=== PATIENT | female | born 1980 | race Caucasian/White ===

== ENCOUNTER 2019-03-18 19:06 | Inpatient (IN) | payer BC ==
[~2019-03-18 19:06] MED LIST: Lactated Ringers 1,000 ML IV SCH
[2019-03-18] MEDS ORDERED: cefOXitin 2 GM Vial IVPUSH ONE (19:34)
--- NOTE | 2019-03-18 21:25 | PCM.HPR ---
H & P Addendum review - H & P Addendum Review Date of Original H & P: 03/18/19 Date Reviewed: 03/18/19 Time Reviewed: 19:15 Patient was Examined: No Changes (Findings all consistent with appendicitis. Recommend proceeding with lap appy, possible open. Reviewed risks and complication, informed consent obtained.)
[2019-03-18] MEDS ORDERED: Morphine 2 MG/ML Syringe IVPUSH PRN (21:27)
--- NOTE | 2019-03-18 21:27 | PCM.OPNOTE ---
- General Post-Op/Procedure Note Date of Surgery/Procedure: 03/18/19 Operative Procedure(s): Lap Appy and partial Cecectomy Findings: Acute perforated appendicitis Pre Op Diagnosis: acute Appendicitis Post-Op Diagnosis: Same Anesthesia Technique: General ET Tube Primary Surgeon: Paul Mas EBL in mLs: 50 Surgical Drain/Tube Type: Alex Drain Complications: None Condition: Good Free Text/Narrative:: Intake & Output 03/18/19 03/18/19 03/18/19 06:59 14:59 22:59 Output Total 200 Balance -200
[2019-03-18] MEDS ORDERED: fentaNYL 100 MCG/2 ML SDV IV ONE (21:40)
[2019-03-18] MEDS ORDERED: Ketorolac 30 MG/ML SDV IVPUSH ONE (21:40)
[2019-03-18] MEDS ORDERED: Propofol 200 MG/20 ML SDV IV ONE (21:40)
[2019-03-18] MEDS ORDERED: Lactated Ringers 1,000 ML IV ONE (21:40)
[2019-03-18] MEDS ORDERED: Ondansetron 4 MG/2 ML SDV IVPUSH ONE (21:40)
[2019-03-18] MEDS ORDERED: HYDROmorphone 2 MG/ML SDV IV ONE (21:40)
[2019-03-18] MEDS ORDERED: Glycopyrrolate 0.2 MG/ML 5 ML MDV IV ONE (21:40)
[2019-03-18] MEDS ORDERED: cefOXitin 2 GM Vial IV ONE (21:40)
[2019-03-18] MEDS ORDERED: Midazolam 1 MG/ML 2 ML SDV IV ONE (21:40)
[2019-03-18] MEDS ORDERED: Neostigmine Methylsulfate 10 MG/10 ML MDV IVPUSH ONE (21:40)
[2019-03-18] MEDS ORDERED: Rocuronium 50 MG/5 ML Vial IV ONE (21:40)
[2019-03-18] MEDS ORDERED: Lidocaine 2% 100 MG/5 ML Syringe IVPUSH ONE (21:40)
[2019-03-18] MEDS ORDERED: Succinylcholine 200 MG/10 ML MDV IV ONE (21:40)
[2019-03-18] MEDS: Ketorolac 30 MG/ML SDV IVPUSH SCH (22:09)
[2019-03-18] MEDS: Piperacillin/Tazobactam 3.375 GM in Sodium Chloride 0.9% 50 ML IV SCH (22:10)
--- NOTE | 2019-03-18 22:49 | OR ---
DATE OF OPERATION: 03/18/2019 SURGEON: Paul Mas MD PREOPERATIVE DIAGNOSIS: Acute appendicitis. POSTOPERATIVE DIAGNOSIS: Acute appendicitis with perforation. PROCEDURE: Laparoscopic appendectomy with partial cecectomy. ANESTHESIA: General. DESCRIPTION OF PROCEDURE: The patient was brought to the operating room, where general endotracheal anesthesia was administered. Time-out was performed. Flowtrons had been applied. Abdomen was prepped with ChloraPrep and draped sterilely. An infraumbilical incision was made and extended into the peritoneal cavity without difficulty. The Kwasi cannulator was introduced and pneumoperitoneum obtained. The patient was placed in reverse Trendelenburg position and rotated to the left. The right lower quadrant and pelvis had inflammation and adherence of omentum, cecum, small bowel, and small bowel mesentery. These were bluntly . Terminal ileum was identified. Upon the terminal ileum near the cecum, stool chunks were present, measuring up to 1 cm in diameter. Three of these were removed and a few smaller ones suctioned. The perforation was at the base of the appendix. I was able to take down the mesoappendix with one application of the Endo-MICHAEL 2.5 mm stapler. Only 1 filmy band of peritoneum connected the appendix still, so this was transected. Appendix was placed in an Endopouch and brought out through the umbilical incision. The cecum was then thoroughly inspected. The opening was not able to be stapled across since there was no stump left, and the adjacent cecum was inflamed and thickened. After inspecting this thoroughly, I decided to mobilize the lateral and posterior portion of the cecum. There was enough room between the appendix stump and the terminal ileum to place the large Endo- MICHAEL 3.5 mm stapler. Two applications of this were taken across the base of the cecum. A small bit remained, and this was transected with a third application of the Endo-MICHAEL 3.5 mm stapler. This base of the cecum was then brought out through the umbilical incision and also sent for pathology review. In mobilizing the cecum, 2 small blood vessels were encounter that had minimal bleeding and Endo Clips were placed on. The staple lines were thoroughly inspected and were intact. Hemostasis was assured. 1 L of irrigation was used. Ports were removed under direct vision and remained hemostatic. Umbilical fascia was closed with [id number] 0-Vicryl. Skin was closed with 4-0 Vicryl subcuticular sutures. Benzoin and Steri-Strips were placed and Band-Aids applied. The patient tolerated the procedure well. ESTIMATED BLOOD LOSS: 50 mL. She returned to Postanesthesia in stable condition. /[id number] JANE/MERLE PATEL
[2019-03-19] MEDS: Ketorolac 30 MG/ML SDV IVPUSH SCH ×4 (03:15→21:32)
[2019-03-19] MEDS: Piperacillin/Tazobactam 3.375 GM in Sodium Chloride 0.9% 50 ML IV SCH ×4 (03:35→21:38)
[2019-03-19] MEDS: Lactated Ringers 1,000 ML IV SCH ×3 (06:13→23:30)
[2019-03-19] MEDS: Acetaminophen/HYDROcodone 325-5 MG Tab PO PRN ×3 (09:19→22:47)
[2019-03-19] MEDS: Sodium Chloride 0.9% 10 ML Syringe FLUSH PRN ×5 (09:35→22:46)
[2019-03-19] MEDS: Enoxaparin 40 MG/0.4 ML Syringe SUBCUT SCH (20:05)
--- NOTE | 2019-03-19 21:55 | PCM.SURGPN ---
- General Info Date of Service: 03/19/19 POD#: 1 Functional Status: Reports: Pain Controlled, Ambulating - Review of Systems General: Reports: No Symptoms. Denies: Fever Pulmonary: Reports: No Symptoms Cardiovascular: Reports: No Symptoms Gastrointestinal: Reports: Abdominal Pain (in R groin ) - Patient Data Vitals - Most Recent: Last Vital Signs Temp 98.3 F 03/19/19 16:25 Pulse 81 03/19/19 16:25 Resp 18 03/19/19 16:25 BP 91/52 L 03/19/19 16:25 Pulse Ox 92 L 03/19/19 16:25 Weight - Most Recent: 89.947 kg I&O - Last 24 Hours: Intake & Output 03/19/19 03/19/19 03/19/19 06:59 14:59 22:59 Intake Total 984 1037 249 Output Total 400 760 100 Balance 584 277 149 Med Orders - Current: Current Medications Hydrocodone Bitart/Acetaminophen ([place] 325-5 Mg) 1 tab PO Q4H PRN PRN Reason: Pain (mild 1-3) Last Admin: 03/19/19 18:10 Dose: 1 tab Enoxaparin Sodium (Lovenox) 40 mg SUBCUT Q24H [facility] Last Admin: 03/19/19 20:05 Dose: 40 mg Lactated Ringer's (Ringers, Lactated) 1,000 mls @ 100 mls/hr IV ASDIRECTED [facility] Lactated Ringer's (Ringers, Lactated) 1,000 mls @ 125 mls/hr IV ASDIRECTED [facility] Last Admin: 03/19/19 14:17 Dose: 125 mls/hr Piperacillin Sod/Tazobactam (Sod 3.375 gm/ Sodium Chloride) 50 mls @ 100 mls/ hr IV Q6H [facility] Stop: 03/23/19 21:31 Last Admin: 03/19/19 21:38 Dose: 100 mls/hr Ketorolac Tromethamine (Toradol) 30 mg IVPUSH Q6H [facility] Stop: 03/23/19 21:30 Last Admin: 03/19/19 21:32 Dose: 30 mg Morphine Sulfate (Morphine) 2 mg IVPUSH Q1H PRN PRN Reason: Pain (severe 7-10) Last Admin: 03/19/19 05:56 Dose: 2 mg Sodium Chloride (Saline Flush) 10 ml FLUSH ASDIRECTED PRN PRN Reason: Keep Vein Open Last Admin: 03/19/19 21:33 Dose: 10 ml Discontinued Medications Cefoxitin Sodium (Mefoxin) 2 gm IVPUSH ONETIME ONE Stop: 03/18/19 19:35 Last Admin: 03/18/19 22:03 Dose: Not Given Piperacillin Sod/Tazobactam Sod (Zosyn) Confirm Administered Dose 3.375 gm .ROUTE .STK-MED ONE Stop: 03/18/19 21:13 Last Admin: 03/18/19 22:13 Dose: Not Given - Exam Wound/Incisions: Healing Well General: Alert, Oriented Lungs: Clear to Auscultation GI/Abdominal Exam: Soft, Non-Tender - Problem List Review Problem List Initiated/Reviewed/Updated: Yes - My Orders Last 24 Hours: Active Orders 24 hr Category Date Time Status Patient Status [ADT] Routine ADT 03/18/19 21:27 Active Oxygen Therapy [RC] PRN Care 03/18/19 21:27 Active RT Incentive Spirometry [RC] Q2HWA Care 03/18/19 21:27 Active Up With Assistance [RC] ASDIRECTED Care 03/18/19 21:27 Active Vital Signs [RC] 08,12,16,20,00,04 Care 03/18/19 21:27 Active CBC W/O DIFF,HEMOGRAM [HEME] Routine Lab 03/20/19 07:00 Ordered Acetaminophen/HYDROcodone [[place] 325-5 MG] Med 03/18/19 21:27 Active 1 tab PO Q4H PRN Enoxaparin [Lovenox] Med 03/19/19 20:00 Active 40 mg SUBCUT Q24H Ketorolac [Toradol] Med 03/18/19 21:30 Active 30 mg IVPUSH Q6H Lactated Ringers [Ringers, Lactated] 1,000 ml Med 03/18/19 21:30 Active IV ASDIRECTED Morphine Med 03/18/19 21:27 Active 2 mg IVPUSH Q1H PRN Piperacillin/Tazobactam [Zosyn] 3.375 gm Med 03/18/19 21:30 Active Sodium Chloride 0.9% [Normal Saline] 50 ml IV Q6H Sodium Chloride 0.9% [Saline Flush] Med 03/19/19 09:25 Active 10 ml FLUSH ASDIRECTED PRN Resuscitation Status Routine Resus Stat 03/18/19 21:27 Ordered Medication Orders Hydrocodone Bitart/Acetaminophen ([place] 325-5 Mg) 1 tab PO Q4H PRN PRN Reason: Pain (mild 1-3) Last Admin: 03/19/19 18:10 Dose: 1 tab Admin: 03/19/19 09:19 Dose: 1 tab Enoxaparin Sodium (Lovenox) 40 mg SUBCUT Q24H [facility] Last Admin: 03/19/19 20:05 Dose: 40 mg Lactated Ringer's (Ringers, Lactated) 1,000 mls @ 100 mls/hr IV ASDIRECTED [facility] Lactated Ringer's (Ringers, Lactated) 1,000 mls @ 125 mls/hr IV ASDIRECTED [facility] Last Admin: 03/19/19 14:17 Dose: 125 mls/hr Infusion: 03/19/19 14:13 Dose: 125 mls/hr Admin: 03/19/19 06:13 Dose: 125 mls/hr Piperacillin Sod/Tazobactam (Sod 3.375 gm/ Sodium Chloride) 50 mls @ 100 mls/ hr IV Q6H [facility] Stop: 03/23/19 21:31 Last Admin: 03/19/19 21:38 Dose: 100 mls/hr Admin: 03/19/19 15:47 Dose: 100 mls/hr Admin: 03/19/19 09:24 Dose: 100 mls/hr Admin: 03/19/19 03:35 Dose: 100 mls/hr Admin: 03/18/19 22:10 Dose: 100 mls/hr Ketorolac Tromethamine (Toradol) 30 mg IVPUSH Q6H [facility] Stop: 03/23/19 21:30 Last Admin: 03/19/19 21:32 Dose: 30 mg Admin: 03/19/19 15:37 Dose: 30 mg Admin: 03/19/19 09:15 Dose: 30 mg Admin: 03/19/19 03:15 Dose: 30 mg Admin: 03/18/19 22:09 Dose: Morphine Sulfate (Morphine) 2 mg IVPUSH Q1H PRN PRN Reason: Pain (severe 7-10) Last Admin: 03/19/19 05:56 Dose: 2 mg Sodium Chloride (Saline Flush) 10 ml FLUSH ASDIRECTED PRN PRN Reason: Keep Vein Open Last Admin: 03/19/19 21:33 Dose: 10 ml Admin: 03/19/19 16:21 Dose: 10 ml Admin: 03/19/19 15:37 Dose: 10 ml Admin: 03/19/19 09:35 Dose: 10 ml - Assessment Assessment (Free Text/Narrative):: Dong well - Plan Plan (Free Text/Narrative):: Cont as is, await bowel function
[2019-03-20] MEDS: Ketorolac 30 MG/ML SDV IVPUSH SCH ×4 (03:46→21:32)
[2019-03-20] MEDS: Piperacillin/Tazobactam 3.375 GM in Sodium Chloride 0.9% 50 ML IV SCH ×4 (03:47→21:30)
[2019-03-20] MEDS: Acetaminophen/HYDROcodone 325-5 MG Tab PO PRN ×2 (07:17→13:15)
[2019-03-20] MEDS: Lactated Ringers 1,000 ML IV SCH (09:25)
--- NOTE | 2019-03-20 10:23 | PCM.SURGPN ---
- General Info Date of Service: 03/20/19 POD#: 2 Functional Status: Reports: Pain Controlled, Tolerating Diet, Ambulating, Urinating - Review of Systems General: Reports: No Symptoms Gastrointestinal: Reports: No Symptoms, Flatus - Patient Data Vitals - Most Recent: Last Vital Signs Temp 97.9 F 03/20/19 08:00 Pulse 79 03/20/19 08:00 Resp 18 03/20/19 08:00 BP 106/70 03/20/19 08:00 Pulse Ox 94 L 03/20/19 08:00 Weight - Most Recent: 89.947 kg I&O - Last 24 Hours: Intake & Output 03/19/19 03/20/19 03/20/19 22:59 06:59 14:59 Intake Total 980 805 500 Output Total 200 600 Balance 780 205 500 Lab Results Last 24 Hrs: Laboratory Results - last 24 hr 03/20/19 Range/Units 06:25 WBC 7.9 (4.5-12.0) X10-3/uL RBC 3.77 (3.23-5.20) x10(6)uL Hgb 10.4 L D (11.5-15.5) g/dL Hct 30.8 D (30.0-51.3) % MCV 81.5 (80-96) fL MCH 27.7 (27.7-33.6) pg MCHC 33.9 (32.2-35.4) g/dL RDW 14.1 (11.5-15.5) % Plt Count 267 (125-369) X10(3)uL Med Orders - Current: Current Medications Hydrocodone Bitart/Acetaminophen ([place] 325-5 Mg) 1 tab PO Q4H PRN PRN Reason: Pain (mild 1-3) Last Admin: 03/20/19 07:17 Dose: 1 tab Enoxaparin Sodium (Lovenox) 40 mg SUBCUT Q24H [facility] Last Admin: 03/19/19 20:05 Dose: 40 mg Lactated Ringer's (Ringers, Lactated) 1,000 mls @ 100 mls/hr IV ASDIRECTED [facility] Lactated Ringer's (Ringers, Lactated) 1,000 mls @ 125 mls/hr IV ASDIRECTED [facility] Last Admin: 03/20/19 09:25 Dose: 125 mls/hr Piperacillin Sod/Tazobactam (Sod 3.375 gm/ Sodium Chloride) 50 mls @ 100 mls/ hr IV Q6H [facility] Stop: 03/23/19 21:31 Last Admin: 03/20/19 09:42 Dose: 100 mls/hr Ketorolac Tromethamine (Toradol) 30 mg IVPUSH Q6H [facility] Stop: 03/23/19 21:30 Last Admin: 03/20/19 09:42 Dose: 30 mg Morphine Sulfate (Morphine) 2 mg IVPUSH Q1H PRN PRN Reason: Pain (severe 7-10) Last Admin: 03/19/19 05:56 Dose: 2 mg Sodium Chloride (Saline Flush) 10 ml FLUSH ASDIRECTED PRN PRN Reason: Keep Vein Open Last Admin: 03/19/19 22:46 Dose: 10 ml Discontinued Medications Cefoxitin Sodium (Mefoxin) 2 gm IVPUSH ONETIME ONE Stop: 03/18/19 19:35 Last Admin: 03/18/19 22:03 Dose: Not Given Piperacillin Sod/Tazobactam Sod (Zosyn) Confirm Administered Dose 3.375 gm .ROUTE .STK-MED ONE Stop: 03/18/19 21:13 Last Admin: 03/18/19 22:13 Dose: Not Given - Exam Wound/Incisions: Healing Well GI/Abdominal Exam: Soft, Non-Tender - Problem List Review Problem List Initiated/Reviewed/Updated: Yes - My Orders Last 24 Hours: Active Orders 24 hr Category Date Time Status Clear Liquid Diet [DIET] Diet 03/20/19 Breakfast Active Enoxaparin [Lovenox] Med 03/19/19 20:00 Active 40 mg SUBCUT Q24H Sodium Chloride 0.9% [Saline Flush] Med 03/19/19 09:25 Active 10 ml FLUSH ASDIRECTED PRN Medication Orders Hydrocodone Bitart/Acetaminophen ([place] 325-5 Mg) 1 tab PO Q4H PRN PRN Reason: Pain (mild 1-3) Last Admin: 03/20/19 07:17 Dose: 1 tab Admin: 03/19/19 22:47 Dose: 1 tab Admin: 03/19/19 18:10 Dose: 1 tab Admin: 03/19/19 09:19 Dose: 1 tab Enoxaparin Sodium (Lovenox) 40 mg SUBCUT Q24H [facility] Last Admin: 03/19/19 20:05 Dose: 40 mg Lactated Ringer's (Ringers, Lactated) 1,000 mls @ 100 mls/hr IV ASDIRECTED [facility] Lactated Ringer's (Ringers, Lactated) 1,000 mls @ 125 mls/hr IV ASDIRECTED [facility] Last Admin: 03/20/19 09:25 Dose: 125 mls/hr Infusion: 03/20/19 07:30 Dose: 125 mls/hr Admin: 03/19/19 23:30 Dose: 125 mls/hr Infusion: 03/19/19 22:17 Dose: 125 mls/hr Admin: 03/19/19 14:17 Dose: 125 mls/hr Infusion: 03/19/19 14:13 Dose: 125 mls/hr Admin: 03/19/19 06:13 Dose: 125 mls/hr Piperacillin Sod/Tazobactam (Sod 3.375 gm/ Sodium Chloride) 50 mls @ 100 mls/ hr IV Q6H [facility] Stop: 03/23/19 21:31 Last Admin: 03/20/19 09:42 Dose: 100 mls/hr Admin: 03/20/19 03:47 Dose: 100 mls/hr Admin: 03/19/19 21:38 Dose: 100 mls/hr Admin: 03/19/19 15:47 Dose: 100 mls/hr Admin: 03/19/19 09:24 Dose: 100 mls/hr Admin: 03/19/19 03:35 Dose: 100 mls/hr Admin: 03/18/19 22:10 Dose: 100 mls/hr Ketorolac Tromethamine (Toradol) 30 mg IVPUSH Q6H [facility] Stop: 03/23/19 21:30 Last Admin: 03/20/19 09:42 Dose: 30 mg Admin: 03/20/19 03:46 Dose: 30 mg Admin: 03/19/19 21:32 Dose: 30 mg Admin: 03/19/19 15:37 Dose: 30 mg Admin: 03/19/19 09:15 Dose: 30 mg Admin: 03/19/19 03:15 Dose: 30 mg Admin: 03/18/19 22:09 Dose: Morphine Sulfate (Morphine) 2 mg IVPUSH Q1H PRN PRN Reason: Pain (severe 7-10) Last Admin: 03/19/19 05:56 Dose: 2 mg Sodium Chloride (Saline Flush) 10 ml FLUSH ASDIRECTED PRN PRN Reason: Keep Vein Open Last Admin: 03/19/19 22:46 Dose: 10 ml Admin: 03/19/19 21:33 Dose: 10 ml Admin: 03/19/19 16:21 Dose: 10 ml Admin: 03/19/19 15:37 Dose: 10 ml Admin: 03/19/19 09:35 Dose: 10 ml - Assessment Assessment (Free Text/Narrative):: Doing well - Plan Plan (Free Text/Narrative):: Start po
[2019-03-20] MEDS: Enoxaparin 40 MG/0.4 ML Syringe SUBCUT SCH (20:31)
[2019-03-21] MEDS: Ketorolac 30 MG/ML SDV IVPUSH SCH ×2 (03:55→08:42)
[2019-03-21] MEDS: Piperacillin/Tazobactam 3.375 GM in Sodium Chloride 0.9% 50 ML IV SCH ×2 (03:56→08:43)
[2019-03-21] MEDS: Sodium Chloride 0.9% 10 ML Syringe FLUSH PRN (03:57)
--- NOTE | 2019-03-21 09:33 | PCM.SURGPN ---
- General Info Date of Service: 03/21/19 POD#: 3 Functional Status: Reports: Pain Controlled, Tolerating Diet, Ambulating, Urinating - Review of Systems General: Reports: No Symptoms Gastrointestinal: Reports: No Symptoms - Patient Data Vitals - Most Recent: Last Vital Signs Temp 99.4 F 03/21/19 04:00 Pulse 85 03/21/19 04:00 Resp 16 03/21/19 04:00 BP 117/78 03/21/19 04:00 Pulse Ox 92 L 03/21/19 04:00 Weight - Most Recent: 89.947 kg I&O - Last 24 Hours: Intake & Output 03/20/19 03/21/19 03/21/19 22:59 06:59 14:59 Intake Total 395 600 Output Total 500 1200 900 Balance -105 -600 -900 Med Orders - Current: Current Medications Hydrocodone Bitart/Acetaminophen ([place] 325-5 Mg) 1 tab PO Q4H PRN PRN Reason: Pain (mild 1-3) Last Admin: 03/20/19 13:15 Dose: 1 tab Enoxaparin Sodium (Lovenox) 40 mg SUBCUT Q24H [facility] Last Admin: 03/20/19 20:31 Dose: 40 mg Lactated Ringer's (Ringers, Lactated) 1,000 mls @ 75 mls/hr IV ASDIRECTED [facility] Last Admin: 03/20/19 22:00 Dose: 75 mls/hr Lactated Ringer's (Ringers, Lactated) 1,000 mls @ 125 mls/hr IV ASDIRECTED [facility] Last Infusion: 03/20/19 10:44 Dose: 75 mls/hr Piperacillin Sod/Tazobactam (Sod 3.375 gm/ Sodium Chloride) 50 mls @ 100 mls/ hr IV Q6H [facility] Stop: 03/23/19 21:31 Last Admin: 03/21/19 08:43 Dose: 100 mls/hr Ketorolac Tromethamine (Toradol) 30 mg IVPUSH Q6H [facility] Stop: 03/23/19 21:30 Last Admin: 03/21/19 08:42 Dose: 30 mg Morphine Sulfate (Morphine) 2 mg IVPUSH Q1H PRN PRN Reason: Pain (severe 7-10) Last Admin: 03/19/19 05:56 Dose: 2 mg Sodium Chloride (Saline Flush) 10 ml FLUSH ASDIRECTED PRN PRN Reason: Keep Vein Open Last Admin: 03/21/19 03:57 Dose: 10 ml Discontinued Medications Cefoxitin Sodium (Mefoxin) 2 gm IVPUSH ONETIME ONE Stop: 03/18/19 19:35 Last Admin: 03/18/19 22:03 Dose: Not Given Piperacillin Sod/Tazobactam Sod (Zosyn) Confirm Administered Dose 3.375 gm .ROUTE .STK-MED ONE Stop: 03/18/19 21:13 Last Admin: 03/18/19 22:13 Dose: Not Given - Exam Wound/Incisions: Healing Well, Dressing Dry and Intact GI/Abdominal Exam: Soft, Non-Tender, Distended (mild) - Problem List Review Problem List Initiated/Reviewed/Updated: Yes - My Orders Last 24 Hours: Active Orders 24 hr Category Date Time Status Regular Diet [DIET] Diet 03/21/19 Breakfast Active Medication Orders Hydrocodone Bitart/Acetaminophen ([place] 325-5 Mg) 1 tab PO Q4H PRN PRN Reason: Pain (mild 1-3) Last Admin: 03/20/19 13:15 Dose: 1 tab Admin: 03/20/19 07:17 Dose: 1 tab Admin: 03/19/19 22:47 Dose: 1 tab Admin: 03/19/19 18:10 Dose: 1 tab Admin: 03/19/19 09:19 Dose: 1 tab Enoxaparin Sodium (Lovenox) 40 mg SUBCUT Q24H [facility] Last Admin: 03/20/19 20:31 Dose: 40 mg Admin: 03/19/19 20:05 Dose: 40 mg Lactated Ringer's (Ringers, Lactated) 1,000 mls @ 75 mls/hr IV ASDIRECTED [facility] Last Admin: 03/20/19 22:00 Dose: 75 mls/hr Lactated Ringer's (Ringers, Lactated) 1,000 mls @ 125 mls/hr IV ASDIRECTED [facility] Last Infusion: 03/20/19 10:44 Dose: 75 mls/hr Admin: 03/20/19 09:25 Dose: 125 mls/hr Infusion: 03/20/19 07:30 Dose: 125 mls/hr Admin: 03/19/19 23:30 Dose: 125 mls/hr Infusion: 03/19/19 22:17 Dose: 125 mls/hr Admin: 03/19/19 14:17 Dose: 125 mls/hr Infusion: 03/19/19 14:13 Dose: 125 mls/hr Admin: 03/19/19 06:13 Dose: 125 mls/hr Piperacillin Sod/Tazobactam (Sod 3.375 gm/ Sodium Chloride) 50 mls @ 100 mls/ hr IV Q6H [facility] Stop: 03/23/19 21:31 Last Admin: 03/21/19 08:43 Dose: 100 mls/hr Admin: 03/21/19 03:56 Dose: 100 mls/hr Admin: 03/20/19 21:30 Dose: 100 mls/hr Admin: 03/20/19 15:44 Dose: 100 mls/hr Admin: 03/20/19 09:42 Dose: 100 mls/hr Admin: 03/20/19 03:47 Dose: 100 mls/hr Admin: 03/19/19 21:38 Dose: 100 mls/hr Admin: 03/19/19 15:47 Dose: 100 mls/hr Admin: 03/19/19 09:24 Dose: 100 mls/hr Admin: 03/19/19 03:35 Dose: 100 mls/hr Admin: 03/18/19 22:10 Dose: 100 mls/hr Ketorolac Tromethamine (Toradol) 30 mg IVPUSH Q6H [facility] Stop: 03/23/19 21:30 Last Admin: 03/21/19 08:42 Dose: 30 mg Admin: 03/21/19 03:55 Dose: 30 mg Admin: 03/20/19 21:32 Dose: 30 mg Admin: 03/20/19 15:42 Dose: 30 mg Admin: 03/20/19 09:42 Dose: 30 mg Admin: 03/20/19 03:46 Dose: 30 mg Admin: 03/19/19 21:32 Dose: 30 mg Admin: 03/19/19 15:37 Dose: 30 mg Admin: 03/19/19 09:15 Dose: 30 mg Admin: 03/19/19 03:15 Dose: 30 mg Admin: 03/18/19 22:09 Dose: Morphine Sulfate (Morphine) 2 mg IVPUSH Q1H PRN PRN Reason: Pain (severe 7-10) Last Admin: 03/19/19 05:56 Dose: 2 mg Sodium Chloride (Saline Flush) 10 ml FLUSH ASDIRECTED PRN PRN Reason: Keep Vein Open Last Admin: 03/21/19 03:57 Dose: 10 ml Admin: 03/19/19 22:46 Dose: 10 ml Admin: 03/19/19 21:33 Dose: 10 ml Admin: 03/19/19 16:21 Dose: 10 ml Admin: 03/19/19 15:37 Dose: 10 ml Admin: 03/19/19 09:35 Dose: 10 ml - Assessment Assessment (Free Text/Narrative):: Doing well - Plan Plan (Free Text/Narrative):: Ready for discharge
--- NOTE | 2019-03-21 09:39 | PCM.DCSUM1 ---
Discharge Summary - Hospital Course Brief History: Admitted on 03/18/19 with few day hx of worsening abd pain. CT showed acute appendicitis. Underwent above surgery that day. Postop course was unremarkable. Bowel funcion returned by POD#2. Is tolerating diet well. WBC returned to normal and has remained afebrile. - Discharge Data Discharge Date: 03/21/19 Discharge Disposition: Home, Self-Care 01 Condition: Good - Patient Summary/Data Operative Procedure(s) Performed: Lap Appy and partial Cecectomy Complications: none - Patient Instructions Diet: Usual Diet as Tolerated Activity: No Strenuous Activities (for 10 more days) Showering/Bathing: January Shower Wound/Incision Care: Keep Operative Site/Wound Site Clean and Dry - Discharge Plan Home Medications: Home Meds DULoxetine [Cymbalta] 60 mg PO DAILY 03/18/19 [History] Lisinopril 10 mg PO DAILY 03/18/19 [History] busPIRone [Buspar] 15 mg PO DAILY 03/18/19 [History] Referrals: Paul Mas MD [Physician] - (f/u next Tu at 1300) - Discharge Summary/Plan Comment DC Time >30 min.: No - Patient Data Vitals - Most Recent: Last Vital Signs Temp 99.4 F 03/21/19 04:00 Pulse 85 03/21/19 04:00 Resp 16 03/21/19 04:00 BP 117/78 03/21/19 04:00 Pulse Ox 92 L 03/21/19 04:00 Weight - Most Recent: 89.947 kg I&O - Last 24 hours: Intake & Output 03/20/19 03/21/19 03/21/19 22:59 06:59 14:59 Intake Total 395 600 Output Total 500 1200 900 Balance -105 -600 -900 Med Orders - Current: Current Medications Hydrocodone Bitart/Acetaminophen ([place] 325-5 Mg) 1 tab PO Q4H PRN PRN Reason: Pain (mild 1-3) Last Admin: 03/20/19 13:15 Dose: 1 tab Enoxaparin Sodium (Lovenox) 40 mg SUBCUT Q24H [facility] Last Admin: 03/20/19 20:31 Dose: 40 mg Lactated Ringer's (Ringers, Lactated) 1,000 mls @ 75 mls/hr IV ASDIRECTED [facility] Last Admin: 03/20/19 22:00 Dose: 75 mls/hr Lactated Ringer's (Ringers, Lactated) 1,000 mls @ 125 mls/hr IV ASDIRECTED [facility] Last Infusion: 03/20/19 10:44 Dose: 75 mls/hr Piperacillin Sod/Tazobactam (Sod 3.375 gm/ Sodium Chloride) 50 mls @ 100 mls/ hr IV Q6H [facility] Stop: 03/23/19 21:31 Last Admin: 03/21/19 08:43 Dose: 100 mls/hr Ketorolac Tromethamine (Toradol) 30 mg IVPUSH Q6H [facility] Stop: 03/23/19 21:30 Last Admin: 03/21/19 08:42 Dose: 30 mg Morphine Sulfate (Morphine) 2 mg IVPUSH Q1H PRN PRN Reason: Pain (severe 7-10) Last Admin: 03/19/19 05:56 Dose: 2 mg Sodium Chloride (Saline Flush) 10 ml FLUSH ASDIRECTED PRN PRN Reason: Keep Vein Open Last Admin: 03/21/19 03:57 Dose: 10 ml Discontinued Medications Cefoxitin Sodium (Mefoxin) 2 gm IVPUSH ONETIME ONE Stop: 03/18/19 19:35 Last Admin: 03/18/19 22:03 Dose: Not Given Piperacillin Sod/Tazobactam Sod (Zosyn) Confirm Administered Dose 3.375 gm .ROUTE .STK-MED ONE Stop: 03/18/19 21:13 Last Admin: 03/18/19 22:13 Dose: Not Given
== END 2019-03-21 13:10 | disposition home or self-care (01) | DRG 221 ==
LOC: FB.SDS 19:06 → FB.MS 19:06 → FB.SDS 21:26 → FB.MS 21:27
PROVIDERS: ADMIT Surgery; ATTEND Surgery
PROC: 0DTJ4ZZ Resection of Appendix, Percutaneous Endoscopic Approach (ICD-10-PCS; principal; 2019-03-18)
PROC: 0DBH4ZZ Excision of Cecum, Percutaneous Endoscopic Approach (ICD-10-PCS; 2019-03-18)
DX: K35.32 Acute appendicitis with perforation, localized peritonitis, and gangrene, without abscess (principal); Z87.42 Personal history of other diseases of the female genital tract
CPT/HCPCS: 36415; 74177; 80053; 81001; 81025; 85025; 85027; 85651; 86140; 88304; 94150; A9270-GY; J0330; J0694; J1170; J1650; J1885; J2001; J2250; J2270; J2405; J2543; J2704; J2710; J3010; J3490; J7050; J7120; Q9967

== ENCOUNTER 2023-05-05 07:04 | Day surgery (SDC) | payer BC, OTHER ==
[~2023-05-05 07:04] MED LIST changes: +Sodium Chloride 0.9% 10 ML Syringe FLUSH PRN
[2023-05-05] MEDS ORDERED: Propofol 200 MG/20 ML SDV IV ONE (07:05)
[2023-05-05] MEDS ORDERED: Midazolam 1 MG/ML 2 ML SDV IV ONE (07:05)
[2023-05-05] MEDS ORDERED: Lidocaine 2% 5 ML SDV IV ONE (07:05)
[2023-05-05] MEDS ORDERED: Simethicone Drops 40 MG/0.6 ML 30 ML Bottle PO ONE (08:42)
== END 2023-05-05 09:40 | disposition home or self-care (01) ==
LOC: FB.SDS 07:04
PROVIDERS: ATTEND Surgery
DX: K59.4 Anal spasm (principal); K62.89 Other specified diseases of anus and rectum; F41.9 Anxiety disorder, unspecified; F32.A Depression, unspecified; Z79.899 Other long term (current) drug therapy; Z98.890 Other specified postprocedural states; Z88.8 Allergy status to other drugs, medicaments and biological substances; Z87.891 Personal history of nicotine dependence
CPT/HCPCS: 00811; 82947; A9270-GY; J2250; J2704; J7120